=== PATIENT | female | born 1970 | race Asian ===

== ENCOUNTER 2017-07-15 19:52 | Emergency (ER) | payer BC, OTHER ==
[~2017-07-15] VITALS: Ht 162.6 cm; Wt 61.0 kg
[~2017-07-15 19:52] MED LIST: METF500T4 PO
[2017-07-15] MEDS ORDERED: SODIUM CHLORIDE 0.9% 1,000 ML IV ONE ×2 (20:15→22:30)
[2017-07-15] MEDS ORDERED: IBUPROFEN 800 MG TABLET PO ONE (20:15)
[2017-07-15] MEDS ORDERED: ACETAMINOPHEN 500 MG TABLET PO ONE (20:15)
[2017-07-15 20:27] LABS: EOSINOPHILS % (AUTO) 0.1 % (1.0-6.0); HEMATOCRIT 39.5 % (36-46); HEMOGLOBIN 13.4 g/dL (12.0-16.0); LYMPHOCYTES # (AUTO) 0.9 K/uL (1.0-4.8); LYMPHOCYTES % (AUTO) 8.5 % (22.0-44.0); MEAN CORPUSCULAR HEMOGLOBIN 30.2 pg (26.0-34.0); MEAN CORPUSCULAR VOLUME 89 fL (80-100); MONOCYTES % (AUTO) 0.4 % (2.0-9.0); NEUTROPHILS # (AUTO) 9.6 K/uL (1.8-7.7); PLATELET COUNT (AUTO) 249 K/uL (150-450); RED BLOOD CELL COUNT(AUTO) 4.46 MIL/uL (4.00-5.20); RED CELL DISTRIBUTION WIDTH 12.6 % (11.5-14.5); WHITE BLOOD COUNT (AUTO) 10.5 K/uL (4.5-11.0)
[2017-07-15 20:36] LABS: ANION GAP 17 mmol/L (8-16); CARBON DIOXIDE 20 mmol/L (22-29); CHLORIDE 94 mmol/L (98-107); CREATININE 0.62 mg/dL (0.60-1.30); GLOMERULAR FILTR. RATE CALC > 60 mL/min (>60); SODIUM SERUM 131 mmol/L (136-145); UREA NITROGEN, BLOOD 8 mg/dL (7-18)
[2017-07-15 20:42] LABS: ALANINE AMINOTRANSFERASE 70 U/L (12-78); ALBUMIN 3.7 g/dL (3.4-5.0); ASPARTATE AMINOTRANSFERASE 140 U/L (15-37); BILIRUBIN,TOTAL 0.7 mg/dL (0.1-1.0); TOTAL PROTEIN, SERUM 7.7 g/dL (6.4-8.2)
[2017-07-15 20:54] LABS: RBC MORPHOLOGY COMMENT NORMAL RBC MORPH
[2017-07-15 20:54] LABS: APPEARANCE,URINE CLOUDY (CLEAR); GLUCOSE, URINE (UA) >=1000 mg/dL (NEGATIVE); KETONES,URINE 40 mg/dL (NEGATIVE); LEUKOCYTE ESTERASE ,URINE NEGATIVE (NEGATIVE); OCCULT BLOOD,URINE NEGATIVE (NEGATIVE); PROTEIN,URINE SEE CONFIRM (NEGATIVE)
[2017-07-15 20:55] LABS: ADD UA MICROSCOPIC YES
[2017-07-15 20:58] LABS: RBC,URINE 0-2 /HPF (0-2); SQUAMOUS EPITHELIAL CELL,UR Few /LPF (None Seen); SULFOSALICYLIC ACID,URINE 3+ (Negative)
[2017-07-15 21:01] LABS: LACTIC ACID 1.8 mmol/L (0.4-2.0)
[2017-07-15 21:10] LABS: INFLUENZA TYPE B NEGATIVE FOR TYPE B (NEGATIVE)
[2017-07-15 21:23] LABS: GLUCOSE COMMENT 1 Doctor Notified; GLUCOSE,POINT OF CARE 300 MG/DL (70-110)
[2017-07-15] MEDS ORDERED: INSULIN REGULAR, HUMAN 100 UNITS/ML IVP ONE (21:30)
[2017-07-15] MEDS ORDERED: CefTRIAXone 1 GM/DEXTROSE 50 ML IV ONE (21:30)
[2017-07-15 22:16] LABS: GLUCOSE,POINT OF CARE 242 MG/DL (70-110)
[2017-07-16 00:13] LABS: GLUCOSE,POINT OF CARE 328 MG/DL (70-110)
[2017-07-16] MEDS ORDERED: INSULIN REGULAR, HUMAN 100 UNITS/ML IVP ONE (00:15)
[2017-07-16] MEDS ORDERED: SODIUM CHLORIDE 0.9% 500 ML IV ONE (00:45)
[2017-07-16 01:02] LABS: GLUCOSE,POINT OF CARE 268 MG/DL (70-110)
[2017-07-16 01:42] LABS: ANION GAP 15 mmol/L (8-16); CALCIUM, TOTAL 7.7 mg/dL (8.8-10.5); CARBON DIOXIDE 19 mmol/L (22-29); CHLORIDE 103 mmol/L (98-107); CREATININE 0.64 mg/dL (0.60-1.30); GLOMERULAR FILTR. RATE CALC > 60 mL/min (>60); POTASSIUM 3.1 mmol/L (3.5-5.1); SODIUM SERUM 137 mmol/L (136-145); UREA NITROGEN, BLOOD 9 mg/dL (7-18)
[2017-07-16 01:48] LABS: ALANINE AMINOTRANSFERASE 82 U/L (12-78); ALBUMIN 2.6 g/dL (3.4-5.0); ASPARTATE AMINOTRANSFERASE 119 U/L (15-37); BILIRUBIN,TOTAL 0.3 mg/dL (0.1-1.0); TOTAL PROTEIN, SERUM 5.7 g/dL (6.4-8.2)
[2017-07-16] MEDS ORDERED: POTASSIUM CHLORIDE 20 MEQ ER TABLET PO ONE (02:30)
[2017-07-16 02:31] VITALS: BP 112/7
== END 2017-07-16 02:45 | disposition home or self-care (01) ==
LOC: EMS 19:53
DX: N39.0 Urinary tract infection, site not specified (principal); R50.9 Fever, unspecified; E11.65 Type 2 diabetes mellitus with hyperglycemia; E86.0 Dehydration
CPT/HCPCS: 36415; 80053; 81001; 82009; 82962; 83605; 84703; 85025; 87040; 87077; 87086; 87186; 87430; 87804; 96360; 96361; 96365; 96375; 96376; 99285; J0696; J1815 ×2; J7030

== ENCOUNTER 2017-08-01 08:48 | Inpatient (IN) | payer BC, MEDICAID ==
[~2017-08-01] VITALS: Ht 162.6 cm; Wt 47.5 kg
[2017-08-01] MEDS ORDERED: METF500T4 PO (09:02)
[2017-08-01 09:12] LABS: GLUCOSE,POINT OF CARE 476 MG/DL (70-110)
[2017-08-01] MEDS ORDERED: SODIUM CHLORIDE 0.9% 1,000 ML IV ONE ×2 (10:00→13:30)
[2017-08-01 10:06] LABS: HEMATOCRIT 43.7 % (36-46); HEMOGLOBIN 14.4 g/dL (12.0-16.0); MEAN CORPUSCULAR HEMOGLOBIN 29.5 pg (26.0-34.0); MEAN CORPUSCULAR HGB CONC 33.1 G/dL (31.0-37.0); MEAN CORPUSCULAR VOLUME 89 fL (80-100); PLATELET COUNT (AUTO) 176 K/uL (150-450); RED BLOOD CELL COUNT(AUTO) 4.89 MIL/uL (4.00-5.20); RED CELL DISTRIBUTION WIDTH 13.6 % (11.5-14.5); WHITE BLOOD COUNT (AUTO) 14.6 K/uL (4.5-11.0)
[2017-08-01 10:22] LABS: HEMOGLOBIN A1C 11.5 % (4.5-6.2)
[2017-08-01 10:23] LABS: ALANINE AMINOTRANSFERASE 49 U/L (12-78); ALBUMIN 2.7 g/dL (3.4-5.0); ANION GAP 25 mmol/L (8-16); ASPARTATE AMINOTRANSFERASE 13 U/L (15-37); BILIRUBIN,TOTAL 0.7 mg/dL (0.1-1.0); CALCIUM, TOTAL 9.2 mg/dL (8.8-10.5); CHLORIDE 87 mmol/L (98-107); CREATININE 0.84 mg/dL (0.60-1.30); GLOMERULAR FILTR. RATE CALC > 60 mL/min (>60); POTASSIUM 3.1 mmol/L (3.5-5.1); TOTAL PROTEIN, SERUM 8.3 g/dL (6.4-8.2); UREA NITROGEN, BLOOD 12 mg/dL (7-18)
[2017-08-01 10:24] LABS: BAND NEUTROPHILS % (MANUAL) 21 % (1-5); LYMPHOCYTES % (MANUAL) 5 % (22-44); TOTAL CELLS COUNTED 100
[2017-08-01 10:25] LABS: RBC MORPHOLOGY COMMENT NORMAL RBC MORPH
[2017-08-01 10:26] LABS: CARBON DIOXIDE 9 mmol/L (22-29); SODIUM SERUM 121 mmol/L (136-145)
[2017-08-01 10:33] LABS: APPEARANCE,URINE CLEAR (CLEAR); GLUCOSE, URINE (UA) >=1000 mg/dL (NEGATIVE); KETONES,URINE >=80 mg/dL (NEGATIVE); LEUKOCYTE ESTERASE ,URINE NEGATIVE (NEGATIVE); OCCULT BLOOD,URINE SMALL (NEGATIVE); PH,URINE 5.5 (5.0-8.0); PROTEIN,URINE POS 1+ (NEGATIVE)
[2017-08-01 10:40] LABS: ABG A-A DIFF O2 21.4 mmHg (10-20.0); ABG BASE EXCESS -21.5 mmol/L (-2.0-3.0); ABG HCO3 10.6 mmol/L (22.0-26.0); ABG OXYHEMOGLOBIN 96.5 % (94.0-100.0)
[2017-08-01 10:41] LABS: ABG PCO2 13 mmHg (35-45)
[2017-08-01 10:42] LABS: ALLEN TEST, BLOOD GAS Positive
[2017-08-01 11:09] LABS: SQUAMOUS EPITHELIAL CELL,UR Few /LPF (None Seen); WBC,URINE None Seen /HPF (0-5)
[2017-08-01 12:27] LABS: GLUCOSE,POINT OF CARE 309 MG/DL (70-110)
[2017-08-01 13:12] LABS: GLUCOSE,POINT OF CARE 320 MG/DL (70-110)
[2017-08-01] MEDS ORDERED: POTASSIUM CHLORIDE 40 MEQ in SODIUM CHLORIDE 0.45% 1,000 ML IV PRN (13:21)
[2017-08-01] MEDS ORDERED: INSULIN REGULAR, HUMAN 100 UNITS in SODIUM CHLORIDE 0.9% 99 ML IV PRN ×4 (13:21→15:00)
[2017-08-01] MEDS ORDERED: DEXTROSE 5%-0.45% SODIUM CHL 1,000 ML IV PRN (13:21)
[2017-08-01] MEDS ORDERED: SODIUM CHLORIDE 0.45% 1,000 ML IV PRN ×2 (13:21→15:00)
[2017-08-01] MEDS ORDERED: SODIUM CHLORIDE 0.9% 1,000 ML IV SCH ×2 (13:21→15:00)
[2017-08-01] MEDS ORDERED: POTASSIUM CHL 20 MEQ/0.45% NS 1,000 ML IV PRN (13:21)
[2017-08-01] MEDS ORDERED: DEXTROSE 50%-WATER 25 GM/50 ML SYRINGE IVP PRN ×2 (13:30→15:00)
[2017-08-01] MEDS ORDERED: INSULIN REGULAR, HUMAN 100 UNITS/ML IVP ONE ×2 (13:30→15:00)
[2017-08-01] MEDS ORDERED: INSULIN REGULAR, HUMAN 100 UNITS/ML IVP PRN ×2 (13:30→15:00)
[2017-08-01 14:05] LABS: ANION GAP 25 mmol/L (8-16); CALCIUM, TOTAL 8.5 mg/dL (8.8-10.5); CHLORIDE 96 mmol/L (98-107); CREATININE 0.68 mg/dL (0.60-1.30); GLOMERULAR FILTR. RATE CALC > 60 mL/min (>60); POTASSIUM 3.3 mmol/L (3.5-5.1); SODIUM SERUM 129 mmol/L (136-145); UREA NITROGEN, BLOOD 12 mg/dL (7-18)
[2017-08-01 14:10] LABS: CARBON DIOXIDE 8 mmol/L (22-29)
[2017-08-01] MEDS ORDERED: HYDROCODONE/ACETAMINOPHEN 5-325 MG TABLET PO PRN (15:00)
[2017-08-01] MEDS ORDERED: MAGNESIUM HYDROXIDE SUSPENSION 30 ML UDCUP PO PRN (15:00)
[2017-08-01] MEDS ORDERED: ZOLPIDEM TARTRATE 5 MG TABLET PO PRN (15:00)
[2017-08-01] MEDS ORDERED: BISACODYL 10 MG RECTAL RECTAL SUPPOSITORY PR PRN (15:00)
[2017-08-01] MEDS ORDERED: ONDANSETRON HCL 4 MG/2 ML VIAL IVP PRN (15:00)
[2017-08-01] MEDS ORDERED: MORPHINE SULFATE 2 MG/ML SYRINGE IVP PRN (15:00)
[2017-08-01 15:08] LABS: GLUCOSE,POINT OF CARE 229 MG/DL (70-110)
[2017-08-01] MEDS: DEXTROSE 5%-0.45% SODIUM CHL 1,000 ML IV PRN ×2 (15:35→20:36)
[2017-08-01 16:08] LABS: GLUCOSE,POINT OF CARE 228 MG/DL (70-110)
[2017-08-01] MEDS ORDERED: POTASSIUM CHL 40 MEQ/D5-0.45NS 1,000 ML IV ONE (16:30)
[2017-08-01 17:08] LABS: GLUCOSE,POINT OF CARE 157 MG/DL (70-110)
[2017-08-01] MEDS: HEPARIN SODIUM,PORCINE 5,000 UNITS/ML VIAL SQ SCH ×2 (17:51→23:59)
[2017-08-01 18:08] LABS: GLUCOSE,POINT OF CARE 157 MG/DL (70-110)
[2017-08-01 18:42] LABS: EOSINOPHILS % (AUTO) 0 % (1.0-6.0); HEMATOCRIT 37.3 % (36-46); HEMOGLOBIN 12.5 g/dL (12.0-16.0); LYMPHOCYTES # (AUTO) 0.2 K/uL (1.0-4.8); LYMPHOCYTES % (AUTO) 1.4 % (22.0-44.0); MEAN CORPUSCULAR HEMOGLOBIN 29.5 pg (26.0-34.0); MEAN CORPUSCULAR HGB CONC 33.5 G/dL (31.0-37.0); MEAN CORPUSCULAR VOLUME 88 fL (80-100); MONOCYTES # (AUTO) 0.3 K/uL (0.1-1.0); NEUTROPHILS # (AUTO) 15.9 K/uL (1.8-7.7); PLATELET COUNT (AUTO) 201 K/uL (150-450); RED BLOOD CELL COUNT(AUTO) 4.23 MIL/uL (4.00-5.20); RED CELL DISTRIBUTION WIDTH 13.5 % (11.5-14.5); WHITE BLOOD COUNT (AUTO) 16.5 K/uL (4.5-11.0)
[2017-08-01 18:46] LABS: ANION GAP 16 mmol/L (8-16); CALCIUM, TOTAL 8.4 mg/dL (8.8-10.5); CARBON DIOXIDE 13 mmol/L (22-29); CHLORIDE 101 mmol/L (98-107); CREATININE 0.62 mg/dL (0.60-1.30); GLOMERULAR FILTR. RATE CALC > 60 mL/min (>60); SODIUM SERUM 130 mmol/L (136-145); UREA NITROGEN, BLOOD 10 mg/dL (7-18)
[2017-08-01 18:47] LABS: NEUTROPHILS % (AUTO) 96.6 % (40.0-70.0)
[2017-08-01 18:52] LABS: POTASSIUM 2.5 mmol/L (3.5-5.1)
[2017-08-01 19:02] LABS: GLUCOSE,POINT OF CARE 133 MG/DL (70-110)
[2017-08-01] MEDS: POTASSIUM CHL 10 MEQ/WATER 50 ML IV PRN ×5 (19:18→23:25)
[2017-08-01 19:21] LABS: RBC MORPHOLOGY COMMENT NORMAL RBC MORPH
[2017-08-01] MEDS: POTASSIUM CHLORIDE 40 MEQ in SODIUM CHLORIDE 0.45% 1,000 ML IV PRN ×2 (20:39→23:39)
[2017-08-01 21:00] VITALS: BP 138/68
[2017-08-01] MEDS: DOCUSATE SODIUM 100 MG CAPSULE PO SCH (21:16)
[2017-08-01] MEDS ORDERED: PNEUMOCOCCAL VACCINE POLYVALENT 0.5 ML VIAL [PPSV23] IM ONE (22:15)
[2017-08-01 22:59] LABS: ANION GAP 12 mmol/L (8-16); CALCIUM, TOTAL 8.4 mg/dL (8.8-10.5); CARBON DIOXIDE 14 mmol/L (22-29); CHLORIDE 100 mmol/L (98-107); CREATININE 0.45 mg/dL (0.60-1.30); GLOMERULAR FILTR. RATE CALC > 60 mL/min (>60); POTASSIUM 3.5 mmol/L (3.5-5.1); SODIUM SERUM 126 mmol/L (136-145); UREA NITROGEN, BLOOD 9 mg/dL (7-18)
[2017-08-02] VITALS (7 sets, daily range): BP systolic 97–138; BP diastolic 50–80
[2017-08-02 00:14] LABS: GLUCOSE COMMENT 1 Received Meds; GLUCOSE,POINT OF CARE 107 MG/DL (70-110)
[2017-08-02 00:14] LABS: GLUCOSE COMMENT 1 Received Meds; GLUCOSE,POINT OF CARE 116 MG/DL (70-110)
[2017-08-02 00:14] LABS: GLUCOSE,POINT OF CARE 109 MG/DL (70-110)
[2017-08-02 00:14] LABS: GLUCOSE COMMENT 1 Received Meds; GLUCOSE,POINT OF CARE 107 MG/DL (70-110)
[2017-08-02 00:14] LABS: GLUCOSE COMMENT 1 Received Meds; GLUCOSE,POINT OF CARE 102 MG/DL (70-110)
[2017-08-02] MEDS: POTASSIUM CHL 10 MEQ/WATER 50 ML IV PRN ×2 (00:26→01:08)
[2017-08-02 03:54] LABS: BASOPHILS % (AUTO) 0.1 % (0.0-2.0); EOSINOPHILS % (AUTO) 0.2 % (1.0-6.0); HEMOGLOBIN 11.6 g/dL (12.0-16.0); LYMPHOCYTES # (AUTO) 0.9 K/uL (1.0-4.8); LYMPHOCYTES % (AUTO) 6.2 % (22.0-44.0); MEAN CORPUSCULAR HEMOGLOBIN 29.1 pg (26.0-34.0); MEAN CORPUSCULAR HGB CONC 34.1 G/dL (31.0-37.0); MEAN CORPUSCULAR VOLUME 85 fL (80-100); MONOCYTES # (AUTO) 0.9 K/uL (0.1-1.0); MONOCYTES % (AUTO) 6.1 % (2.0-9.0); NEUTROPHILS # (AUTO) 12.6 K/uL (1.8-7.7); PLATELET COUNT (AUTO) 182 K/uL (150-450); RED BLOOD CELL COUNT(AUTO) 3.99 MIL/uL (4.00-5.20); RED CELL DISTRIBUTION WIDTH 13.5 % (11.5-14.5); WHITE BLOOD COUNT (AUTO) 14.4 K/uL (4.5-11.0)
[2017-08-02 03:56] LABS: NEUTROPHILS % (AUTO) 87.4 % (40.0-70.0)
[2017-08-02 04:11] LABS: RBC MORPHOLOGY COMMENT NORMAL RBC MORPH
[2017-08-02 04:13] LABS: ALANINE AMINOTRANSFERASE 39 U/L (12-78); ALBUMIN 1.8 g/dL (3.4-5.0); ANION GAP 11 mmol/L (8-16); ASPARTATE AMINOTRANSFERASE 47 U/L (15-37); BILIRUBIN,TOTAL 0.5 mg/dL (0.1-1.0); CALCIUM, TOTAL 8.1 mg/dL (8.8-10.5); CARBON DIOXIDE 14 mmol/L (22-29); CHLORIDE 100 mmol/L (98-107); CREATININE 0.42 mg/dL (0.60-1.30); GLOMERULAR FILTR. RATE CALC > 60 mL/min (>60); POTASSIUM 3.7 mmol/L (3.5-5.1); SODIUM SERUM 125 mmol/L (136-145); TOTAL PROTEIN, SERUM 5.7 g/dL (6.4-8.2); UREA NITROGEN, BLOOD 7 mg/dL (7-18)
[2017-08-02 04:24] LABS: PHOSPHORUS 0.6 mg/dL (2.5-4.9)
[2017-08-02 04:32] LABS: GLUCOSE COMMENT 1 Received Meds; GLUCOSE,POINT OF CARE 157 MG/DL (70-110)
[2017-08-02 04:32] LABS: GLUCOSE COMMENT 1 Received Meds; GLUCOSE,POINT OF CARE 133 MG/DL (70-110)
[2017-08-02 04:32] LABS: GLUCOSE COMMENT 1 Received Meds; GLUCOSE,POINT OF CARE 136 MG/DL (70-110)
[2017-08-02 04:32] LABS: GLUCOSE COMMENT 1 Received Meds; GLUCOSE,POINT OF CARE 128 MG/DL (70-110)
[2017-08-02] MEDS: DEXTROSE 5%-0.45% SODIUM CHL 1,000 ML IV PRN (04:43)
[2017-08-02] MEDS: POTASSIUM CHLORIDE 40 MEQ in SODIUM CHLORIDE 0.45% 1,000 ML IV PRN (04:46)
[2017-08-02] MEDS ORDERED: SODIUM PHOS,M-BASIC-D-BASIC 30 MMOL in DEXTROSE 5%-WATER 250 ML IV ONE (05:00)
[2017-08-02] MEDS ORDERED: MAGNESIUM SULFATE 2 GM in DEXTROSE 5%-WATER 50 ML IV ONE (05:00)
[2017-08-02 07:46] LABS: ANION GAP 11 mmol/L (8-16); CALCIUM, TOTAL 8.6 mg/dL (8.8-10.5); CARBON DIOXIDE 16 mmol/L (22-29); CHLORIDE 99 mmol/L (98-107); GLOMERULAR FILTR. RATE CALC > 60 mL/min (>60); POTASSIUM 4.2 mmol/L (3.5-5.1); SODIUM SERUM 126 mmol/L (136-145); UREA NITROGEN, BLOOD 7 mg/dL (7-18)
[2017-08-02] MEDS: POTASSIUM CHL 20 MEQ/0.45% NS 1,000 ML IV PRN ×2 (08:26→12:05)
[2017-08-02] MEDS: HEPARIN SODIUM,PORCINE 5,000 UNITS/ML VIAL SQ SCH ×2 (08:54→16:53)
[2017-08-02] MEDS: DOCUSATE SODIUM 100 MG CAPSULE PO SCH ×2 (08:54→20:31)
[2017-08-02] MEDS: PANTOPRAZOLE SODIUM 40 MG DR TABLET PO SCH (08:55)
[2017-08-02 11:27] LABS: ANION GAP 13 mmol/L (8-16); CALCIUM, TOTAL 7.5 mg/dL (8.8-10.5); CARBON DIOXIDE 13 mmol/L (22-29); CHLORIDE 97 mmol/L (98-107); CREATININE 0.47 mg/dL (0.60-1.30); GLOMERULAR FILTR. RATE CALC > 60 mL/min (>60); POTASSIUM 3.2 mmol/L (3.5-5.1); UREA NITROGEN, BLOOD 7 mg/dL (7-18)
[2017-08-02 11:30] LABS: SODIUM SERUM 123 mmol/L (136-145)
[2017-08-02] MEDS ORDERED: POTASSIUM CHL 20 MEQ/0.9% NS 1,000 ML IV SCH (12:15)
[2017-08-02] MEDS ORDERED: POTASSIUM CHL 20 MEQ/0.9% NS 1,000 ML IV PRN (12:30)
[2017-08-02] MEDS: POTASSIUM CHLORIDE 20 MEQ ER TABLET PO PRN ×2 (12:32→20:34)
[2017-08-02] MEDS: ACETAMINOPHEN 325 MG TABLET PO PRN ×2 (14:50→23:15)
[2017-08-02 15:58] LABS: ANION GAP 12 mmol/L (8-16); CALCIUM, TOTAL 7.4 mg/dL (8.8-10.5); CARBON DIOXIDE 14 mmol/L (22-29); CHLORIDE 97 mmol/L (98-107); CREATININE 0.49 mg/dL (0.60-1.30); GLOMERULAR FILTR. RATE CALC > 60 mL/min (>60); POTASSIUM 3.5 mmol/L (3.5-5.1); UREA NITROGEN, BLOOD 6 mg/dL (7-18)
[2017-08-02 16:08] LABS: SODIUM SERUM 123 mmol/L (136-145)
[2017-08-02] MEDS ORDERED: INSULIN REGULAR, HUMAN 100 UNITS/ML SQ ONE (16:30)
[2017-08-02] MEDS ORDERED: DEXTROSE 50%-WATER 25 GM/50 ML SYRINGE IVP PRN (16:30)
[2017-08-02] MEDS: INSULIN DETEMIR 100 UNITS/ML SQ SCH (17:33)
[2017-08-02] MEDS: INSULIN REGULAR, HUMAN 100 UNITS/ML SQ PRN ×2 (17:35→19:47)
[2017-08-02 19:56] LABS: ANION GAP 9 mmol/L (8-16); CALCIUM, TOTAL 7.8 mg/dL (8.8-10.5); CARBON DIOXIDE 16 mmol/L (22-29); CHLORIDE 101 mmol/L (98-107); CREATININE 0.53 mg/dL (0.60-1.30); GLOMERULAR FILTR. RATE CALC > 60 mL/min (>60); POTASSIUM 3.3 mmol/L (3.5-5.1); SODIUM SERUM 126 mmol/L (136-145); UREA NITROGEN, BLOOD 7 mg/dL (7-18)
[2017-08-02] MEDS: POTASSIUM CHL 20 MEQ/0.9% NS 1,000 ML IV SCH (20:30)
[2017-08-02 20:39] LABS: GLUCOSE,POINT OF CARE 118 MG/DL (70-110)
[2017-08-02 20:39] LABS: GLUCOSE COMMENT 1 Received Meds; GLUCOSE,POINT OF CARE 115 MG/DL (70-110)
[2017-08-02 20:39] LABS: GLUCOSE,POINT OF CARE 208 MG/DL (70-110)
[2017-08-02 20:40] LABS: GLUCOSE,POINT OF CARE 204 MG/DL (70-110)
[2017-08-02 20:40] LABS: GLUCOSE COMMENT 1 Received Meds; GLUCOSE,POINT OF CARE 219 MG/DL (70-110)
[2017-08-02 20:40] LABS: GLUCOSE,POINT OF CARE 217 MG/DL (70-110)
[2017-08-02 20:40] LABS: GLUCOSE,POINT OF CARE 225 MG/DL (70-110)
[2017-08-02 20:40] LABS: GLUCOSE,POINT OF CARE 216 MG/DL (70-110)
[2017-08-02 20:40] LABS: GLUCOSE,POINT OF CARE 197 MG/DL (70-110)
[2017-08-02 20:40] LABS: GLUCOSE,POINT OF CARE 230 MG/DL (70-110)
[2017-08-03] MEDS: HEPARIN SODIUM,PORCINE 5,000 UNITS/ML VIAL SQ SCH ×4 (00:13→23:49)
[2017-08-03] MEDS: POTASSIUM CHLORIDE 20 MEQ ER TABLET PO PRN (03:58)
[2017-08-03 04:39] VITALS: BP 98/48
[2017-08-03 08:26] VITALS: BP 114/57
[2017-08-03] MEDS: PANTOPRAZOLE SODIUM 40 MG DR TABLET PO SCH (08:31)
[2017-08-03] MEDS: DOCUSATE SODIUM 100 MG CAPSULE PO SCH ×2 (08:31→20:16)
[2017-08-03] MEDS: ACETAMINOPHEN 325 MG TABLET PO PRN ×2 (09:33→20:17)
[2017-08-03 09:47] LABS: CALCIUM, TOTAL 8.1 mg/dL (8.8-10.5); CARBON DIOXIDE 17 mmol/L (22-29); CREATININE 0.51 mg/dL (0.60-1.30); GLOMERULAR FILTR. RATE CALC > 60 mL/min (>60); UREA NITROGEN, BLOOD 6 mg/dL (7-18)
[2017-08-03 11:09] LABS: ANION GAP 13 mmol/L (8-16); CHLORIDE 103 mmol/L (98-107); POTASSIUM 4.3 mmol/L (3.5-5.1); SODIUM SERUM 133 mmol/L (136-145)
[2017-08-03] MEDS: POTASSIUM CHL 20 MEQ/0.9% NS 1,000 ML IV SCH (11:13)
[2017-08-03 11:36] LABS: GLUCOSE COMMENT 1 Received Meds; GLUCOSE,POINT OF CARE 120 MG/DL (70-110)
[2017-08-03 11:47] LABS: GLUCOSE,POINT OF CARE 105 MG/DL (70-110)
[2017-08-03 11:48] VITALS: BP 96/43
[2017-08-03 11:48] LABS: GLUCOSE,POINT OF CARE 270 MG/DL (70-110)
[2017-08-03] MEDS: INSULIN REGULAR, HUMAN 100 UNITS/ML SQ PRN ×3 (11:54→22:07)
[2017-08-03 12:50] LABS: GLUCOSE,POINT OF CARE 300 MG/DL (70-110)
[2017-08-03] MEDS ORDERED: INSULIN DETEMIR 100 UNITS/ML SQ ONE (15:30)
[2017-08-03 16:13] LABS: ANION GAP 10 mmol/L (8-16); CALCIUM, TOTAL 8.2 mg/dL (8.8-10.5); CARBON DIOXIDE 19 mmol/L (22-29); CHLORIDE 98 mmol/L (98-107); CREATININE 0.53 mg/dL (0.60-1.30); GLOMERULAR FILTR. RATE CALC > 60 mL/min (>60); POTASSIUM 4.1 mmol/L (3.5-5.1); SODIUM SERUM 127 mmol/L (136-145); UREA NITROGEN, BLOOD 8 mg/dL (7-18)
[2017-08-03 16:26] VITALS: BP 101/62
[2017-08-03] MEDS: CefTRIAXone 1 GM/DEXTROSE 50 ML IV SCH (16:44)
[2017-08-03] MEDS: INSULIN DETEMIR 100 UNITS/ML SQ SCH (18:22)
[2017-08-03 19:43] VITALS: BP 119/67
[2017-08-03 23:39] VITALS: BP 111/61
[2017-08-04 00:36] LABS: APPEARANCE,URINE CLEAR (CLEAR); GLUCOSE, URINE (UA) >=1000 mg/dL (NEGATIVE); KETONES,URINE 15 mg/dL (NEGATIVE); LEUKOCYTE ESTERASE ,URINE NEGATIVE (NEGATIVE); OCCULT BLOOD,URINE MODERATE (NEGATIVE); PROTEIN,URINE TRACE (NEGATIVE)
[2017-08-04 00:38] LABS: ADD UA MICROSCOPIC YES
[2017-08-04 01:16] LABS: SQUAMOUS EPITHELIAL CELL,UR Rare /LPF (None Seen)
[2017-08-04] MEDS: POTASSIUM CHL 20 MEQ/0.9% NS 1,000 ML IV SCH ×2 (01:34→15:38)
[2017-08-04 04:38] VITALS: BP 103/58
[2017-08-04 04:38] LABS: GLUCOSE,POINT OF CARE 144 MG/DL (70-110)
[2017-08-04 07:29] VITALS: BP 112/57
[2017-08-04 07:29] LABS: BASOPHILS # (AUTO) 0.02 K/uL (0.00-0.20); BASOPHILS % (AUTO) 0.1 % (0.0-2.0); EOSINOPHILS # (AUTO) 0.02 K/uL (0.00-0.70); EOSINOPHILS % (AUTO) 0.09 % (1.0-6.0); HEMOGLOBIN 11.9 g/dL (12.0-16.0); LYMPHOCYTES # (AUTO) 0.9 K/uL (1.0-4.8); LYMPHOCYTES % (AUTO) 3.9 % (22.0-44.0); MEAN CORPUSCULAR VOLUME 85 fL (80-100); MONOCYTES # (AUTO) 1.7 K/uL (0.1-1.0); MONOCYTES % (AUTO) 7.6 % (2.0-9.0); NEUTROPHILS # (AUTO) 19.3 K/uL (1.8-7.7); NEUTROPHILS % (AUTO) 88.3 % (40.0-70.0); PLATELET COUNT (AUTO) 167 K/uL (150-450); RBC MORPHOLOGY COMMENT NORMAL RBC MORPH; RED BLOOD CELL COUNT(AUTO) 4.11 MIL/uL (4.00-5.20); RED CELL DISTRIBUTION WIDTH 13.9 % (11.5-14.5); WHITE BLOOD COUNT (AUTO) 21.9 K/uL (4.5-11.0)
[2017-08-04] MEDS: DOCUSATE SODIUM 100 MG CAPSULE PO SCH ×2 (08:35→20:44)
[2017-08-04] MEDS: PANTOPRAZOLE SODIUM 40 MG DR TABLET PO SCH (08:35)
[2017-08-04] MEDS: HEPARIN SODIUM,PORCINE 5,000 UNITS/ML VIAL SQ SCH ×3 (08:35→23:59)
[2017-08-04 11:12] VITALS: BP 112/59
[2017-08-04] MEDS: INSULIN REGULAR, HUMAN 100 UNITS/ML SQ PRN ×3 (11:48→20:50)
[2017-08-04 15:12] LABS: GLUCOSE COMMENT 1 Received Meds; GLUCOSE,POINT OF CARE 179 MG/DL (70-110)
[2017-08-04] MEDS: CefTRIAXone 1 GM/DEXTROSE 50 ML IV SCH (15:38)
[2017-08-04 16:01] VITALS: BP 109/53
[2017-08-04] MEDS: INSULIN DETEMIR 100 UNITS/ML SQ SCH (17:58)
[2017-08-04 18:19] LABS: GLUCOSE,POINT OF CARE 277 MG/DL (70-110)
[2017-08-04 18:19] LABS: GLUCOSE COMMENT 1 Juice/Food/D50 Given; GLUCOSE,POINT OF CARE 77 MG/DL (70-110)
[2017-08-04 18:19] LABS: GLUCOSE,POINT OF CARE 66 MG/DL (70-110)
[2017-08-04 18:19] LABS: GLUCOSE,POINT OF CARE 256 MG/DL (70-110)
[2017-08-04 19:59] VITALS: BP 134/69
[2017-08-04 22:03] LABS: GLUCOSE,POINT OF CARE 246 MG/DL (70-110)
[2017-08-04 22:03] LABS: GLUCOSE COMMENT 1 Received Meds; GLUCOSE,POINT OF CARE 288 MG/DL (70-110)
[2017-08-04 23:34] VITALS: BP 117/65
[2017-08-05] MEDS: INSULIN REGULAR, HUMAN 100 UNITS/ML SQ PRN ×5 (01:18→20:43)
[2017-08-05 05:15] VITALS: BP 110/61
[2017-08-05] MEDS: POTASSIUM CHL 20 MEQ/0.9% NS 1,000 ML IV SCH ×2 (05:17→19:59)
[2017-08-05 06:28] LABS: GLUCOSE,POINT OF CARE 161 MG/DL (70-110)
[2017-08-05 06:28] LABS: GLUCOSE,POINT OF CARE 153 MG/DL (70-110)
[2017-08-05] MEDS: PANTOPRAZOLE SODIUM 40 MG DR TABLET PO SCH (08:02)
[2017-08-05] MEDS: HEPARIN SODIUM,PORCINE 5,000 UNITS/ML VIAL SQ SCH ×3 (08:03→23:56)
[2017-08-05] MEDS: DOCUSATE SODIUM 100 MG CAPSULE PO SCH ×2 (08:03→20:43)
[2017-08-05 08:06] VITALS: BP 112/64
[2017-08-05 11:20] VITALS: BP 124/70
[2017-08-05 11:37] LABS: GLUCOSE,POINT OF CARE 237 MG/DL (70-110)
[2017-08-05] MEDS: CefTRIAXone 1 GM/DEXTROSE 50 ML IV SCH (15:24)
[2017-08-05 15:30] VITALS: BP 120/68
[2017-08-05 15:52] LABS: GLUCOSE,POINT OF CARE 314 MG/DL (70-110)
[2017-08-05 16:04] LABS: ANION GAP 7 mmol/L (8-16); CALCIUM, TOTAL 8.1 mg/dL (8.8-10.5); CARBON DIOXIDE 26 mmol/L (22-29); CHLORIDE 98 mmol/L (98-107); CREATININE 0.44 mg/dL (0.60-1.30); GLOMERULAR FILTR. RATE CALC > 60 mL/min (>60); POTASSIUM 4.6 mmol/L (3.5-5.1); SODIUM SERUM 131 mmol/L (136-145); UREA NITROGEN, BLOOD 7 mg/dL (7-18)
[2017-08-05 16:12] LABS: ALANINE AMINOTRANSFERASE 128 U/L (12-78); ALBUMIN 1.8 g/dL (3.4-5.0); ASPARTATE AMINOTRANSFERASE 124 U/L (15-37); BILIRUBIN,TOTAL 0.8 mg/dL (0.1-1.0); TOTAL PROTEIN, SERUM 6.6 g/dL (6.4-8.2)
[2017-08-05 16:16] LABS: EOSINOPHILS % (AUTO) 0.3 % (1.0-6.0); HEMATOCRIT 34.2 % (36-46); HEMOGLOBIN 11.9 g/dL (12.0-16.0); LYMPHOCYTES # (AUTO) 1.2 K/uL (1.0-4.8); LYMPHOCYTES % (AUTO) 6.3 % (22.0-44.0); MEAN CORPUSCULAR HEMOGLOBIN 29.7 pg (26.0-34.0); MEAN CORPUSCULAR HGB CONC 34.8 G/dL (31.0-37.0); MEAN CORPUSCULAR VOLUME 85 fL (80-100); MONOCYTES # (AUTO) 0.6 K/uL (0.1-1.0); MONOCYTES % (AUTO) 3.3 % (2.0-9.0); NEUTROPHILS # (AUTO) 16.7 K/uL (1.8-7.7); PLATELET COUNT (AUTO) 263 K/uL (150-450); RED BLOOD CELL COUNT(AUTO) 4.02 MIL/uL (4.00-5.20); WHITE BLOOD COUNT (AUTO) 18.5 K/uL (4.5-11.0)
[2017-08-05 16:19] LABS: NEUTROPHILS % (AUTO) 90.1 % (40.0-70.0)
[2017-08-05] MEDS: INSULIN DETEMIR 100 UNITS/ML SQ SCH (18:03)
[2017-08-05 20:14] VITALS: BP 121/67
[2017-08-05 22:33] LABS: GLUCOSE COMMENT 1 Received Meds; GLUCOSE,POINT OF CARE 226 MG/DL (70-110)
[2017-08-06 00:18] VITALS: BP 113/70
[2017-08-06 02:47] LABS: GLUCOSE,POINT OF CARE 186 MG/DL (70-110)
[2017-08-06 05:10] VITALS: BP 117/67
[2017-08-06 05:48] LABS: GLUCOSE,POINT OF CARE 190 MG/DL (70-110)
[2017-08-06 06:22] LABS: BASOPHILS # (AUTO) 0.01 K/uL (0.00-0.20); BASOPHILS % (AUTO) 0.1 % (0.0-2.0); EOSINOPHILS # (AUTO) 0.03 K/uL (0.00-0.70); EOSINOPHILS % (AUTO) 0.17 % (1.0-6.0); HEMATOCRIT 29.6 % (36-46); HEMOGLOBIN 10.7 g/dL (12.0-16.0); LYMPHOCYTES # (AUTO) 1.5 K/uL (1.0-4.8); LYMPHOCYTES % (AUTO) 9.3 % (22.0-44.0); MEAN CORPUSCULAR HEMOGLOBIN 29.9 pg (26.0-34.0); MEAN CORPUSCULAR HGB CONC 36.1 G/dL (31.0-37.0); MEAN CORPUSCULAR VOLUME 83 fL (80-100); MONOCYTES # (AUTO) 0.5 K/uL (0.1-1.0); MONOCYTES % (AUTO) 3.1 % (2.0-9.0); NEUTROPHILS # (AUTO) 14.1 K/uL (1.8-7.7); PLATELET COUNT (AUTO) 274 K/uL (150-450); RED BLOOD CELL COUNT(AUTO) 3.57 MIL/uL (4.00-5.20); RED CELL DISTRIBUTION WIDTH 14.2 % (11.5-14.5); WHITE BLOOD COUNT (AUTO) 16.2 K/uL (4.5-11.0)
[2017-08-06 06:33] LABS: ALANINE AMINOTRANSFERASE 125 U/L (12-78); ALBUMIN 1.6 g/dL (3.4-5.0); ANION GAP 6 mmol/L (8-16); ASPARTATE AMINOTRANSFERASE 126 U/L (15-37); BILIRUBIN,TOTAL 0.6 mg/dL (0.1-1.0); CARBON DIOXIDE 27 mmol/L (22-29); CHLORIDE 97 mmol/L (98-107); CREATININE 0.47 mg/dL (0.60-1.30); GLOMERULAR FILTR. RATE CALC > 60 mL/min (>60); POTASSIUM 4.2 mmol/L (3.5-5.1); SODIUM SERUM 130 mmol/L (136-145); TOTAL PROTEIN, SERUM 5.7 g/dL (6.4-8.2); UREA NITROGEN, BLOOD 9 mg/dL (7-18)
[2017-08-06 06:55] LABS: NEUTROPHILS % (AUTO) 87.3 % (40.0-70.0)
[2017-08-06 07:20] VITALS: BP 115/67
[2017-08-06] MEDS: DOCUSATE SODIUM 100 MG CAPSULE PO SCH ×2 (07:43→20:01)
[2017-08-06] MEDS: PANTOPRAZOLE SODIUM 40 MG DR TABLET PO SCH (07:44)
[2017-08-06] MEDS: HEPARIN SODIUM,PORCINE 5,000 UNITS/ML VIAL SQ SCH ×3 (07:44→23:45)
[2017-08-06] MEDS: INSULIN REGULAR, HUMAN 100 UNITS/ML SQ PRN ×5 (09:02→20:37)
[2017-08-06 09:12] LABS: GLUCOSE,POINT OF CARE 293 MG/DL (70-110)
[2017-08-06 11:20] VITALS: BP 130/60
[2017-08-06] MEDS ORDERED: LACTULOSE 20 GM/30 ML SOLUTION UDCUP PO PRN (11:30)
[2017-08-06 12:17] LABS: GLUCOSE,POINT OF CARE 238 MG/DL (70-110)
[2017-08-06 15:10] VITALS: BP 122/62
[2017-08-06] MEDS: CefTRIAXone 1 GM/DEXTROSE 50 ML IV SCH (15:24)
[2017-08-06 16:22] LABS: GLUCOSE,POINT OF CARE 288 MG/DL (70-110)
[2017-08-06] MEDS: INSULIN DETEMIR 100 UNITS/ML SQ SCH (18:36)
[2017-08-06 19:31] VITALS: BP 116/64
[2017-08-06] MEDS: POTASSIUM CHL 20 MEQ/0.9% NS 1,000 ML IV SCH (19:35)
[2017-08-07] VITALS (7 sets, daily range): BP systolic 93–125; BP diastolic 47–73
[2017-08-07 04:13] LABS: GLUCOSE,POINT OF CARE 225 MG/DL (70-110)
[2017-08-07 04:13] LABS: GLUCOSE,POINT OF CARE 248 MG/DL (70-110)
[2017-08-07 04:13] LABS: GLUCOSE COMMENT 1 Received Meds; GLUCOSE,POINT OF CARE 288 MG/DL (70-110)
[2017-08-07 05:58] LABS: BASOPHILS % (AUTO) 0.1 % (0.0-2.0); EOSINOPHILS % (AUTO) 0.4 % (1.0-6.0); HEMATOCRIT 31.2 % (36-46); HEMOGLOBIN 10.8 g/dL (12.0-16.0); LYMPHOCYTES # (AUTO) 1.6 K/uL (1.0-4.8); LYMPHOCYTES % (AUTO) 10.4 % (22.0-44.0); MEAN CORPUSCULAR HEMOGLOBIN 29.7 pg (26.0-34.0); MEAN CORPUSCULAR HGB CONC 34.6 G/dL (31.0-37.0); MEAN CORPUSCULAR VOLUME 86 fL (80-100); MONOCYTES # (AUTO) 0.8 K/uL (0.1-1.0); MONOCYTES % (AUTO) 5.3 % (2.0-9.0); NEUTROPHILS # (AUTO) 12.7 K/uL (1.8-7.7); NEUTROPHILS % (AUTO) 83.8 % (40.0-70.0); PLATELET COUNT (AUTO) 347 K/uL (150-450); RED BLOOD CELL COUNT(AUTO) 3.64 MIL/uL (4.00-5.20); RED CELL DISTRIBUTION WIDTH 14.4 % (11.5-14.5); WHITE BLOOD COUNT (AUTO) 15.1 K/uL (4.5-11.0)
[2017-08-07 06:22] LABS: ALANINE AMINOTRANSFERASE 113 U/L (12-78); ALBUMIN 1.9 g/dL (3.4-5.0); ANION GAP 7 mmol/L (8-16); ASPARTATE AMINOTRANSFERASE 44 U/L (15-37); BILIRUBIN,TOTAL 0.5 mg/dL (0.1-1.0); CALCIUM, TOTAL 8.3 mg/dL (8.8-10.5); CARBON DIOXIDE 29 mmol/L (22-29); CHLORIDE 99 mmol/L (98-107); CREATININE 0.47 mg/dL (0.60-1.30); GLOMERULAR FILTR. RATE CALC > 60 mL/min (>60); SODIUM SERUM 135 mmol/L (136-145); TOTAL PROTEIN, SERUM 6.8 g/dL (6.4-8.2); UREA NITROGEN, BLOOD 9 mg/dL (7-18)
[2017-08-07] MEDS: HEPARIN SODIUM,PORCINE 5,000 UNITS/ML VIAL SQ SCH ×2 (09:19→16:00)
[2017-08-07] MEDS: PANTOPRAZOLE SODIUM 40 MG DR TABLET PO SCH (09:19)
[2017-08-07] MEDS: DOCUSATE SODIUM 100 MG CAPSULE PO SCH ×2 (09:19→21:18)
[2017-08-07] MEDS: INSULIN REGULAR, HUMAN 100 UNITS/ML SQ PRN ×3 (09:29→21:18)
[2017-08-07 09:33] LABS: GLUCOSE COMMENT 1 Received Meds; GLUCOSE,POINT OF CARE 280 MG/DL (70-110)
[2017-08-07] MEDS ORDERED: GADOBUTROL 1 MMOL/ML 10 ML VIAL IVP ONE (11:11)
[2017-08-07 12:48] LABS: GLUCOSE COMMENT 1 Received Meds; GLUCOSE,POINT OF CARE 329 MG/DL (70-110)
[2017-08-07] MEDS: CefTRIAXone 1 GM/DEXTROSE 50 ML IV SCH (14:47)
[2017-08-07 16:37] LABS: GLUCOSE COMMENT 1 Received Meds; GLUCOSE,POINT OF CARE 199 MG/DL (70-110)
[2017-08-07] MEDS: INSULIN DETEMIR 100 UNITS/ML SQ SCH (18:14)
[2017-08-07] MEDS ORDERED: SODIUM CHLORIDE 0.9% 1,000 ML IV ONE (20:33)
[2017-08-07 21:17] LABS: GLUCOSE,POINT OF CARE 382 MG/DL (70-110)
[2017-08-08] MEDS: INSULIN REGULAR, HUMAN 100 UNITS/ML SQ PRN ×6 (00:12→21:08)
[2017-08-08] MEDS: HEPARIN SODIUM,PORCINE 5,000 UNITS/ML VIAL SQ SCH ×3 (00:12→16:04)
[2017-08-08 00:23] LABS: GLUCOSE COMMENT 1 Received Meds; GLUCOSE,POINT OF CARE 262 MG/DL (70-110)
[2017-08-08 04:19] VITALS: BP 110/60
[2017-08-08 04:47] LABS: GLUCOSE,POINT OF CARE 130 MG/DL (70-110)
[2017-08-08 06:36] LABS: EOSINOPHILS % (AUTO) 0.4 % (1.0-6.0); HEMATOCRIT 30.6 % (36-46); HEMOGLOBIN 10.8 g/dL (12.0-16.0); LYMPHOCYTES # (AUTO) 1.3 K/uL (1.0-4.8); LYMPHOCYTES % (AUTO) 8.6 % (22.0-44.0); MEAN CORPUSCULAR HEMOGLOBIN 30.1 pg (26.0-34.0); MEAN CORPUSCULAR HGB CONC 35.2 G/dL (31.0-37.0); MEAN CORPUSCULAR VOLUME 86 fL (80-100); MONOCYTES # (AUTO) 0.2 K/uL (0.1-1.0); MONOCYTES % (AUTO) 1.3 % (2.0-9.0); NEUTROPHILS # (AUTO) 13.8 K/uL (1.8-7.7); PLATELET COUNT (AUTO) 330 K/uL (150-450); RED BLOOD CELL COUNT(AUTO) 3.57 MIL/uL (4.00-5.20); RED CELL DISTRIBUTION WIDTH 14.5 % (11.5-14.5); WHITE BLOOD COUNT (AUTO) 15.4 K/uL (4.5-11.0)
[2017-08-08 06:55] LABS: NEUTROPHILS % (AUTO) 89.7 % (40.0-70.0)
[2017-08-08 07:32] LABS: ANION GAP 6 mmol/L (8-16); CALCIUM, TOTAL 8.3 mg/dL (8.8-10.5); CARBON DIOXIDE 26 mmol/L (22-29); CHLORIDE 98 mmol/L (98-107); CREATININE 0.56 mg/dL (0.60-1.30); GLOMERULAR FILTR. RATE CALC > 60 mL/min (>60); POTASSIUM 4.5 mmol/L (3.5-5.1); SODIUM SERUM 130 mmol/L (136-145); UREA NITROGEN, BLOOD 12 mg/dL (7-18)
[2017-08-08 07:37] LABS: ALANINE AMINOTRANSFERASE 77 U/L (12-78); ASPARTATE AMINOTRANSFERASE 26 U/L (15-37); BILIRUBIN,TOTAL 0.4 mg/dL (0.1-1.0); TOTAL PROTEIN, SERUM 6.7 g/dL (6.4-8.2)
[2017-08-08 07:57] VITALS: BP 107/65
[2017-08-08] MEDS: DOCUSATE SODIUM 100 MG CAPSULE PO SCH ×2 (08:06→20:24)
[2017-08-08] MEDS: PANTOPRAZOLE SODIUM 40 MG DR TABLET PO SCH (08:06)
[2017-08-08 08:10] LABS: HEPATITIS Bs ANTIGEN SCREEN P Negative (Negative); HEPATITIS C AB SCREEN 0.2 s/co ratio (0.0-0.9)
[2017-08-08 09:17] LABS: GLUCOSE COMMENT 1 Received Meds; GLUCOSE,POINT OF CARE 319 MG/DL (70-110)
[2017-08-08] MEDS: POTASSIUM CHL 20 MEQ/0.9% NS 1,000 ML IV SCH (10:44)
[2017-08-08 11:56] VITALS: BP 128/87
[2017-08-08 13:27] LABS: GLUCOSE COMMENT 1 Received Meds; GLUCOSE,POINT OF CARE 351 MG/DL (70-110)
[2017-08-08] MEDS ORDERED: INSU3INS3 SQ (14:49)
[2017-08-08] MEDS ORDERED: CEFU250T58 PO (14:49)
[2017-08-08 15:27] VITALS: BP 127/73
[2017-08-08] MEDS: CefTRIAXone 1 GM/DEXTROSE 50 ML IV SCH (16:04)
[2017-08-08 16:17] LABS: GLUCOSE COMMENT 1 Received Meds; GLUCOSE,POINT OF CARE 219 MG/DL (70-110)
[2017-08-08] MEDS: INSULIN DETEMIR 100 UNITS/ML SQ SCH (18:13)
[2017-08-08] MEDS ORDERED: IOVERSOL 320 MG/ML 100 ML VIAL ONE (19:08)
[2017-08-08] MEDS ORDERED: BARIUM SULFATE 0.1% SUSPENSION 450 ML BOTTLE ONE (19:19)
[2017-08-08 19:29] VITALS: BP 119/77
[2017-08-08] MEDS: ACETAMINOPHEN 325 MG TABLET PO PRN (20:25)
[2017-08-08 23:01] VITALS: BP 118/64
[2017-08-09] MEDS: HEPARIN SODIUM,PORCINE 5,000 UNITS/ML VIAL SQ SCH ×4 (00:04→23:14)
[2017-08-09 03:13] LABS: GLUCOSE,POINT OF CARE 281 MG/DL (70-110)
[2017-08-09 03:13] LABS: GLUCOSE,POINT OF CARE 160 MG/DL (70-110)
[2017-08-09] MEDS: POTASSIUM CHL 20 MEQ/0.9% NS 1,000 ML IV SCH (03:43)
[2017-08-09 04:48] VITALS: BP 100/60
[2017-08-09 06:06] LABS: BASOPHILS % (AUTO) 0.9 % (0.0-2.0); EOSINOPHILS % (AUTO) 0.4 % (1.0-6.0); HEMATOCRIT 30.9 % (36-46); HEMOGLOBIN 10.5 g/dL (12.0-16.0); LYMPHOCYTES # (AUTO) 1.1 K/uL (1.0-4.8); LYMPHOCYTES % (AUTO) 7.3 % (22.0-44.0); MEAN CORPUSCULAR HEMOGLOBIN 29.6 pg (26.0-34.0); MEAN CORPUSCULAR HGB CONC 33.9 G/dL (31.0-37.0); MEAN CORPUSCULAR VOLUME 87 fL (80-100); MONOCYTES # (AUTO) 0.5 K/uL (0.1-1.0); MONOCYTES % (AUTO) 3.5 % (2.0-9.0); NEUTROPHILS # (AUTO) 13.1 K/uL (1.8-7.7); PLATELET COUNT (AUTO) 406 K/uL (150-450); RED BLOOD CELL COUNT(AUTO) 3.54 MIL/uL (4.00-5.20); RED CELL DISTRIBUTION WIDTH 14.2 % (11.5-14.5); WHITE BLOOD COUNT (AUTO) 14.9 K/uL (4.5-11.0)
[2017-08-09 06:20] LABS: ALANINE AMINOTRANSFERASE 60 U/L (12-78); ALBUMIN 2.1 g/dL (3.4-5.0); ANION GAP 7 mmol/L (8-16); ASPARTATE AMINOTRANSFERASE 15 U/L (15-37); BILIRUBIN,TOTAL 0.4 mg/dL (0.1-1.0); CALCIUM, TOTAL 8.6 mg/dL (8.8-10.5); CARBON DIOXIDE 29 mmol/L (22-29); CHLORIDE 99 mmol/L (98-107); GLOMERULAR FILTR. RATE CALC > 60 mL/min (>60); SODIUM SERUM 135 mmol/L (136-145); TOTAL PROTEIN, SERUM 6.8 g/dL (6.4-8.2); UREA NITROGEN, BLOOD 11 mg/dL (7-18)
[2017-08-09 06:23] LABS: GLUCOSE,POINT OF CARE 180 MG/DL (70-110)
[2017-08-09 06:54] LABS: NEUTROPHILS % (AUTO) 87.9 % (40.0-70.0)
[2017-08-09 07:30] VITALS: BP 114/59
[2017-08-09] MEDS: DOCUSATE SODIUM 100 MG CAPSULE PO SCH ×2 (08:09→20:38)
[2017-08-09] MEDS: ACETAMINOPHEN 325 MG TABLET PO PRN (08:09)
[2017-08-09] MEDS: PANTOPRAZOLE SODIUM 40 MG DR TABLET PO SCH (08:09)
[2017-08-09] MEDS: INSULIN REGULAR, HUMAN 100 UNITS/ML SQ PRN ×5 (08:52→23:14)
[2017-08-09 09:03] LABS: GLUCOSE,POINT OF CARE 341 MG/DL (70-110)
[2017-08-09 12:01] VITALS: BP 111/60
[2017-08-09 15:57] VITALS: BP 114/57
[2017-08-09] MEDS: CefTRIAXone 1 GM/DEXTROSE 50 ML IV SCH (16:10)
[2017-08-09 16:28] LABS: GLUCOSE,POINT OF CARE 299 MG/DL (70-110)
[2017-08-09 17:22] LABS: GLUCOSE,POINT OF CARE 303 MG/DL (70-110)
[2017-08-09] MEDS: INSULIN DETEMIR 100 UNITS/ML SQ SCH (18:35)
[2017-08-09 19:39] VITALS: BP 104/65
[2017-08-09 21:27] LABS: GLUCOSE COMMENT 1 Received Meds; GLUCOSE,POINT OF CARE 287 MG/DL (70-110)
[2017-08-09 21:27] LABS: GLUCOSE COMMENT 1 Received Meds; GLUCOSE,POINT OF CARE 223 MG/DL (70-110)
[2017-08-09 23:13] VITALS: BP 111/63
[2017-08-09 23:37] LABS: GLUCOSE COMMENT 1 Received Meds; GLUCOSE,POINT OF CARE 166 MG/DL (70-110)
[2017-08-10 04:59] VITALS: BP 105/55
[2017-08-10] MEDS: POTASSIUM CHL 20 MEQ/0.9% NS 1,000 ML IV SCH (05:09)
[2017-08-10] MEDS: INSULIN REGULAR, HUMAN 100 UNITS/ML SQ PRN ×2 (05:10→11:45)
[2017-08-10 06:38] LABS: BASOPHILS % (AUTO) 1.3 % (0.0-2.0); EOSINOPHILS % (AUTO) 0.9 % (1.0-6.0); HEMATOCRIT 32.1 % (36-46); HEMOGLOBIN 10.8 g/dL (12.0-16.0); LYMPHOCYTES # (AUTO) 1.3 K/uL (1.0-4.8); LYMPHOCYTES % (AUTO) 14.1 % (22.0-44.0); MEAN CORPUSCULAR HEMOGLOBIN 29.7 pg (26.0-34.0); MEAN CORPUSCULAR HGB CONC 33.6 G/dL (31.0-37.0); MEAN CORPUSCULAR VOLUME 89 fL (80-100); MONOCYTES # (AUTO) 0.6 K/uL (0.1-1.0); MONOCYTES % (AUTO) 7.1 % (2.0-9.0); NEUTROPHILS # (AUTO) 6.9 K/uL (1.8-7.7); NEUTROPHILS % (AUTO) 76.6 % (40.0-70.0); PLATELET COUNT (AUTO) 441 K/uL (150-450); RED BLOOD CELL COUNT(AUTO) 3.62 MIL/uL (4.00-5.20); RED CELL DISTRIBUTION WIDTH 14.5 % (11.5-14.5)
[2017-08-10 06:57] LABS: GLUCOSE COMMENT 1 Received Meds; GLUCOSE,POINT OF CARE 163 MG/DL (70-110)
[2017-08-10 07:06] LABS: ALANINE AMINOTRANSFERASE 47 U/L (12-78); ALBUMIN 2.2 g/dL (3.4-5.0); ANION GAP 7 mmol/L (8-16); ASPARTATE AMINOTRANSFERASE 16 U/L (15-37); BILIRUBIN,TOTAL 0.3 mg/dL (0.1-1.0); CALCIUM, TOTAL 8.5 mg/dL (8.8-10.5); CARBON DIOXIDE 29 mmol/L (22-29); CHLORIDE 100 mmol/L (98-107); CREATININE 0.53 mg/dL (0.60-1.30); GLOMERULAR FILTR. RATE CALC > 60 mL/min (>60); POTASSIUM 4.1 mmol/L (3.5-5.1); SODIUM SERUM 136 mmol/L (136-145); TOTAL PROTEIN, SERUM 6.7 g/dL (6.4-8.2); UREA NITROGEN, BLOOD 14 mg/dL (7-18)
[2017-08-10 07:26] VITALS: BP 106/59
[2017-08-10] MEDS: PANTOPRAZOLE SODIUM 40 MG DR TABLET PO SCH (08:48)
[2017-08-10] MEDS: DOCUSATE SODIUM 100 MG CAPSULE PO SCH (08:48)
[2017-08-10] MEDS: HEPARIN SODIUM,PORCINE 5,000 UNITS/ML VIAL SQ SCH (08:48)
[2017-08-10 09:07] LABS: GLUCOSE COMMENT 1 Received Meds; GLUCOSE,POINT OF CARE 238 MG/DL (70-110)
[2017-08-10 11:28] VITALS: BP 123/65
[2017-08-10 11:53] LABS: GLUCOSE COMMENT 1 Received Meds; GLUCOSE,POINT OF CARE 378 MG/DL (70-110)
[2017-08-10] MEDS ORDERED: SULF1TAB42 PO (13:26)
== END 2017-08-10 13:45 | disposition home or self-care (01) | DRG 420 ==
LOC: EMS 08:53 → ICU 18:20 → 6N 08-02 22:45
PROVIDERS: ADMIT Internal Medicine; ATTEND Internal Medicine
PROC: 3E0234Z Introduction of Serum, Toxoid and Vaccine into Muscle, Percutaneous Approach (ICD-10-PCS; principal; 2017-08-01)
DX: E11.10 Type 2 diabetes mellitus with ketoacidosis without coma (principal); E43 Unspecified severe protein-calorie malnutrition; A41.9 Sepsis, unspecified organism; E87.1 Hypo-osmolality and hyponatremia; N39.0 Urinary tract infection, site not specified; B96.20 Unspecified Escherichia coli [E. coli] as the cause of diseases classified elsewhere; E11.649 Type 2 diabetes mellitus with hypoglycemia without coma; K82.4 Cholesterolosis of gallbladder; E87.6 Hypokalemia; D72.829 Elevated white blood cell count, unspecified; Z87.440 Personal history of urinary (tract) infections; Z90.710 Acquired absence of both cervix and uterus; Z68.1 Body mass index [BMI] 19.9 or less, adult; Z23 Encounter for immunization
CPT/HCPCS: 74177; 74183; 76700; 80074; 82805; 82962; 83036; 83735; 84100; 84132; 87040; 87081; 87086; 90471; A9585; J0696; J1644; J1815; J3475; J3480; J3490; J7030; J7050; J7060

== ENCOUNTER 2017-10-27 23:33 | Emergency (ER) | payer MEDICAID ==
[~2017-10-27] VITALS: Ht 162.6 cm; Wt 54.5 kg
[~2017-10-27 23:33] MED LIST changes: +CEFU250T58 PO; +INSU3INS3 SQ; -METF500T4 PO; +SULF1TAB42 PO
[2017-10-27 23:38] VITALS: BP 145/90
[2017-10-27] MEDS ORDERED: METF500T7 PO (23:39)
[2017-10-27 23:47] LABS: GLUCOSE,POINT OF CARE 400 MG/DL (70-110)
== END 2017-10-28 00:30 | disposition left against medical advice (07) ==
LOC: EMS 23:35
DX: R07.81 Pleurodynia (principal); E11.9 Type 2 diabetes mellitus without complications; Z53.21 Procedure and treatment not carried out due to patient leaving prior to being seen by health care provider
CPT/HCPCS: 82962

== ENCOUNTER 2017-11-05 08:09 | Inpatient (IN) | payer SELFPAY ==
[~2017-11-05] VITALS: Ht 162.6 cm; Wt 45.4 kg
[~2017-11-05 08:09] MED LIST changes: -CEFU250T58 PO; +METF500T7 PO; -SULF1TAB42 PO
[2017-11-05 08:22] LABS: GLUCOSE,POINT OF CARE 376 MG/DL (70-110)
[2017-11-05 08:54] LABS: BASOPHILS % (AUTO) 0.2 % (0.0-2.0); EOSINOPHILS % (AUTO) 0 % (1.0-6.0); HEMATOCRIT 46.4 % (36-46); HEMOGLOBIN 15.5 g/dL (12.0-16.0); LYMPHOCYTES # (AUTO) 0.9 K/uL (1.0-4.8); LYMPHOCYTES % (AUTO) 5.7 % (22.0-44.0); MEAN CORPUSCULAR HEMOGLOBIN 29.8 pg (26.0-34.0); MEAN CORPUSCULAR HGB CONC 33.5 G/dL (31.0-37.0); MEAN CORPUSCULAR VOLUME 89 fL (80-100); MONOCYTES # (AUTO) 0.8 K/uL (0.1-1.0); MONOCYTES % (AUTO) 4.9 % (2.0-9.0); NEUTROPHILS # (AUTO) 14.4 K/uL (1.8-7.7); PLATELET COUNT (AUTO) 218 K/uL (150-450); RED BLOOD CELL COUNT(AUTO) 5.21 MIL/uL (4.00-5.20); RED CELL DISTRIBUTION WIDTH 13.1 % (11.5-14.5)
[2017-11-05 08:57] LABS: NEUTROPHILS % (AUTO) 89.2 % (40.0-70.0)
[2017-11-05 09:20] LABS: ALBUMIN 3.4 g/dL (3.4-5.0); BILIRUBIN,TOTAL 0.5 mg/dL (0.1-1.0); CALCIUM, TOTAL 10.1 mg/dL (8.8-10.5); CREATININE 1.08 mg/dL (0.60-1.30); POTASSIUM 3.6 mmol/L (3.5-5.1); TOTAL PROTEIN, SERUM 9.4 g/dL (6.4-8.2)
[2017-11-05] MEDS ORDERED: SODIUM CHLORIDE 0.9% 1,000 ML IV ONE (09:45)
[2017-11-05] MEDS ORDERED: ONDANSETRON HCL 4 MG/2 ML VIAL IVP ONE (09:45)
[2017-11-05 10:42] LABS: GLUCOSE,POINT OF CARE 327 MG/DL (70-110)
[2017-11-05] MEDS ORDERED: INSULIN REGULAR, HUMAN 100 UNITS/ML IVP ONE (12:15)
[2017-11-05] MEDS ORDERED: CefTRIAXone SODIUM 1 GM in DEXTROSE 5%-WATER 10 ML IV ONE (12:30)
[2017-11-05] MEDS ORDERED: HYDROmorphone 2 MG/ML SYRINGE IVP ONE (12:45)
[2017-11-05 12:53] LABS: GLUCOSE,POINT OF CARE 315 MG/DL (70-110)
[2017-11-05] MEDS ORDERED: ACETAMINOPHEN 325 MG TABLET PO PRN (14:00)
[2017-11-05] MEDS ORDERED: ONDANSETRON HCL 4 MG/2 ML VIAL IVP PRN ×3 (14:00→21:00)
[2017-11-05] MEDS ORDERED: OxyCODONE HCL/ACETAMINOPHEN 5-325 MG TABLET PO PRN (14:00)
[2017-11-05] MEDS ORDERED: 0.9% SODIUM CHLORIDE 10 ML SYRINGE IVP PRN (14:00)
[2017-11-05] MEDS ORDERED: HYDROmorphone 2 MG/ML SYRINGE IVP PRN (14:00)
[2017-11-05 14:42] LABS: GLUCOSE,POINT OF CARE 288 MG/DL (70-110)
[2017-11-05 15:15] VITALS: BP 114/48
[2017-11-05] MEDS ORDERED: DEXTROSE 50%-WATER 25 GM/50 ML SYRINGE IVP PRN (18:30)
[2017-11-05] MEDS ORDERED: MORPHINE SULFATE 2 MG/ML SYRINGE IVP PRN ×3 (18:30→21:00)
[2017-11-05] MEDS: INSULIN ASPART 100 UNITS/ML SQ PRN ×2 (18:42→20:11)
[2017-11-05 18:58] VITALS: BP 119/68
[2017-11-05 19:17] LABS: GLUCOMETER DEV NAME(LOC) 6N 1E; GLUCOSE,POINT OF CARE 303 MG/DL (70-110)
[2017-11-05] MEDS: INSULIN DETEMIR 100 UNITS/ML SQ SCH (20:09)
[2017-11-05] MEDS ORDERED: MAGNESIUM HYDROXIDE SUSPENSION 30 ML UDCUP PO PRN (21:00)
[2017-11-05 21:23] LABS: GLUCOMETER DEV NAME(LOC) PV 4E; GLUCOSE,POINT OF CARE 289 MG/DL (70-110)
[2017-11-05] MEDS: SODIUM CHLORIDE 0.9% 1,000 ML IV SCH (22:37)
[2017-11-05] MEDS: PANTOPRAZOLE SODIUM 40 MG/VIAL IVP SCH (22:37)
[2017-11-05] MEDS: DOCUSATE SODIUM 100 MG CAPSULE PO SCH (22:38)
[2017-11-05 23:09] VITALS: BP 122/73
[2017-11-06] MEDS: ACETAMINOPHEN 325 MG TABLET PO PRN (02:17)
[2017-11-06 04:24] LABS: BILIRUBIN,URINE NEGATIVE (NEGATIVE); GLUCOSE, URINE (UA) >=1000 mg/dL (NEGATIVE); KETONES,URINE >=80 mg/dL (NEGATIVE); LEUKOCYTE ESTERASE ,URINE NEGATIVE (NEGATIVE); NITRATE,URINE NEGATIVE (NEGATIVE); OCCULT BLOOD,URINE SMALL (NEGATIVE); PROTEIN,URINE POS 1+ (NEGATIVE); UROBILINOGEN,URINE 0.2 mg/dL (<=1.0)
[2017-11-06 04:37] LABS: APPEARANCE,URINE HAZY (CLEAR); BACTERIA,URINE None Seen /HPF (None Seen); SQUAMOUS EPITHELIAL CELL,UR Moderate /LPF (None Seen); WBC,URINE None Seen /HPF (0-5)
[2017-11-06 04:42] VITALS: BP 106/64
[2017-11-06 05:58] LABS: GLUCOMETER DEV NAME(LOC) PV 4E; GLUCOSE,POINT OF CARE 234 MG/DL (70-110)
[2017-11-06] MEDS: INSULIN ASPART 100 UNITS/ML SQ PRN ×4 (06:36→20:39)
[2017-11-06 07:00] LABS: BASOPHILS # (AUTO) 0.04 K/uL (0.00-0.20); BASOPHILS % (AUTO) 0.3 % (0.0-2.0); EOSINOPHILS # (AUTO) 0.01 K/uL (0.00-0.70); EOSINOPHILS % (AUTO) 0.09 % (1.0-6.0); HEMATOCRIT 40.5 % (36-46); HEMOGLOBIN 13.6 g/dL (12.0-16.0); LYMPHOCYTES # (AUTO) 0.8 K/uL (1.0-4.8); LYMPHOCYTES % (AUTO) 5.9 % (22.0-44.0); MEAN CORPUSCULAR HEMOGLOBIN 29.4 pg (26.0-34.0); MEAN CORPUSCULAR HGB CONC 33.6 G/dL (31.0-37.0); MEAN CORPUSCULAR VOLUME 88 fL (80-100); MONOCYTES # (AUTO) 0.9 K/uL (0.1-1.0); MONOCYTES % (AUTO) 6.7 % (2.0-9.0); NEUTROPHILS # (AUTO) 11.6 K/uL (1.8-7.7); PLATELET COUNT (AUTO) 195 K/uL (150-450); RED BLOOD CELL COUNT(AUTO) 4.63 MIL/uL (4.00-5.20)
[2017-11-06 07:06] LABS: HEMOGLOBIN A1C 11.9 % (4.5-6.2)
[2017-11-06 07:31] LABS: ANION GAP 15 mmol/L (8-16); CALCIUM, TOTAL 8.8 mg/dL (8.8-10.5); CARBON DIOXIDE 17 mmol/L (22-29); CHLORIDE 95 mmol/L (98-107); CREATININE 0.85 mg/dL (0.60-1.30); GLOMERULAR FILTR. RATE CALC > 60 mL/min (>60); GLUCOSE,RANDOM 244 mg/dL (70-110); POTASSIUM 3.1 mmol/L (3.5-5.1); SODIUM SERUM 127 mmol/L (136-145); UREA NITROGEN, BLOOD 18 mg/dL (7-18)
[2017-11-06 07:57] VITALS: BP 102/70
[2017-11-06] MEDS: PANTOPRAZOLE SODIUM 40 MG/VIAL IVP SCH (09:25)
[2017-11-06] MEDS: DOCUSATE SODIUM 100 MG CAPSULE PO SCH ×2 (09:25→20:23)
[2017-11-06 11:27] VITALS: BP 128/64
[2017-11-06] MEDS: CefTRIAXone SODIUM 1 GM in DEXTROSE 5%-WATER 10 ML IV SCH (12:40)
[2017-11-06 14:28] LABS: GLUCOMETER DEV NAME(LOC) PV 4E; GLUCOSE,POINT OF CARE 269 MG/DL (70-110)
[2017-11-06 15:33] VITALS: BP 118/84
[2017-11-06] MEDS: POTASSIUM CHLORIDE 20 MEQ ER TABLET PO PRN (16:03)
[2017-11-06 20:04] VITALS: BP 115/69
[2017-11-06] MEDS: SODIUM CHLORIDE 0.9% 1,000 ML IV SCH (20:23)
[2017-11-06] MEDS: INSULIN DETEMIR 100 UNITS/ML SQ SCH (20:39)
[2017-11-06] MEDS: POTASSIUM CHL 10 MEQ/WATER 50 ML IV PRN (21:43)
[2017-11-06] MEDS ORDERED: SODIUM CHLORIDE 0.9% 250 ML IV ONE (22:10)
[2017-11-06 23:30] VITALS: BP 109/65
[2017-11-07] MEDS: POTASSIUM CHL 10 MEQ/WATER 50 ML IV PRN ×3 (00:38→04:14)
[2017-11-07 01:03] LABS: GLUCOMETER DEV NAME(LOC) PV 4E; GLUCOSE,POINT OF CARE 382 MG/DL (70-110)
[2017-11-07 01:03] LABS: GLUCOMETER DEV NAME(LOC) PV 4E; GLUCOSE,POINT OF CARE 393 MG/DL (70-110)
[2017-11-07] MEDS: SODIUM CHLORIDE 0.9% 1,000 ML IV SCH (02:23)
[2017-11-07 03:27] VITALS: BP 102/53
[2017-11-07] MEDS: INSULIN ASPART 100 UNITS/ML SQ PRN ×4 (05:36→20:28)
[2017-11-07 06:32] LABS: GLUCOMETER DEV NAME(LOC) PV 4E; GLUCOSE,POINT OF CARE 228 MG/DL (70-110)
[2017-11-07 08:34] VITALS: BP 109/63
[2017-11-07] MEDS: POTASSIUM CHLORIDE 20 MEQ ER TABLET PO PRN (09:30)
[2017-11-07] MEDS: PANTOPRAZOLE SODIUM 40 MG/VIAL IVP SCH (09:30)
[2017-11-07] MEDS: DOCUSATE SODIUM 100 MG CAPSULE PO SCH ×2 (09:30→21:00)
[2017-11-07 11:48] LABS: GLUCOMETER DEV NAME(LOC) PV 4E; GLUCOSE,POINT OF CARE 257 MG/DL (70-110)
[2017-11-07] MEDS: CefTRIAXone SODIUM 1 GM in DEXTROSE 5%-WATER 10 ML IV SCH (12:22)
[2017-11-07 12:37] VITALS: BP 116/63
[2017-11-07 16:16] VITALS: BP 115/70
[2017-11-07 17:37] LABS: GLUCOMETER DEV NAME(LOC) PV 4E; GLUCOSE,POINT OF CARE 342 MG/DL (70-110)
[2017-11-07 20:12] VITALS: BP 109/61
[2017-11-07] MEDS ORDERED: INSULIN DETEMIR 100 UNITS/ML SQ SCH (21:00)
[2017-11-07 22:17] LABS: GLUCOMETER DEV NAME(LOC) PV 4E; GLUCOSE,POINT OF CARE 345 MG/DL (70-110)
[2017-11-08 00:09] VITALS: BP 122/71
[2017-11-08] MEDS: ACETAMINOPHEN 325 MG TABLET PO PRN (00:52)
[2017-11-08 05:27] VITALS: BP 113/77
[2017-11-08 06:06] LABS: ANION GAP 5 mmol/L (8-16); CARBON DIOXIDE 30 mmol/L (22-29); CHLORIDE 101 mmol/L (98-107); CREATININE 0.48 mg/dL (0.60-1.30); GLUCOSE,RANDOM 192 mg/dL (70-110); POTASSIUM 3.1 mmol/L (3.5-5.1); SODIUM SERUM 136 mmol/L (136-145); UREA NITROGEN, BLOOD 9 mg/dL (7-18)
[2017-11-08 06:07] LABS: CALCIUM, TOTAL 8.7 mg/dL (8.8-10.5); GLOMERULAR FILTR. RATE CALC > 60 mL/min (>60)
[2017-11-08] MEDS: SODIUM CHLORIDE 0.9% 1,000 ML IV SCH (06:28)
[2017-11-08] MEDS: INSULIN ASPART 100 UNITS/ML SQ PRN ×2 (06:29→12:26)
[2017-11-08 06:43] LABS: GLUCOMETER DEV NAME(LOC) PV 4E; GLUCOSE,POINT OF CARE 214 MG/DL (70-110)
[2017-11-08 07:08] LABS: BASOPHILS # (AUTO) 0.03 K/uL (0.00-0.20); BASOPHILS % (AUTO) 0.4 % (0.0-2.0); EOSINOPHILS # (AUTO) 0.06 K/uL (0.00-0.70); EOSINOPHILS % (AUTO) 0.77 % (1.0-6.0); HEMATOCRIT 38.6 % (36-46); HEMOGLOBIN 13.2 g/dL (12.0-16.0); LYMPHOCYTES # (AUTO) 1.6 K/uL (1.0-4.8); LYMPHOCYTES % (AUTO) 19.6 % (22.0-44.0); MEAN CORPUSCULAR HEMOGLOBIN 29.6 pg (26.0-34.0); MEAN CORPUSCULAR HGB CONC 34.3 G/dL (31.0-37.0); MEAN CORPUSCULAR VOLUME 86 fL (80-100); MONOCYTES # (AUTO) 0.6 K/uL (0.1-1.0); MONOCYTES % (AUTO) 6.8 % (2.0-9.0); NEUTROPHILS # (AUTO) 5.8 K/uL (1.8-7.7); NEUTROPHILS % (AUTO) 72.5 % (40.0-70.0); PLATELET COUNT (AUTO) 258 K/uL (150-450); RED BLOOD CELL COUNT(AUTO) 4.48 MIL/uL (4.00-5.20); RED CELL DISTRIBUTION WIDTH 13.2 % (11.5-14.5)
[2017-11-08] MEDS: POTASSIUM CHLORIDE 20 MEQ ER TABLET PO PRN (07:55)
[2017-11-08 08:05] VITALS: BP 121/63
[2017-11-08] MEDS: PANTOPRAZOLE SODIUM 40 MG/VIAL IVP SCH (09:00)
[2017-11-08] MEDS: DOCUSATE SODIUM 100 MG CAPSULE PO SCH (09:00)
[2017-11-08 12:23] LABS: GLUCOMETER DEV NAME(LOC) PV 4E; GLUCOSE,POINT OF CARE 292 MG/DL (70-110)
[2017-11-08 12:53] VITALS: BP 150/84
[2017-11-08] MEDS ORDERED: METO5TAB95 PO (13:01)
== END 2017-11-08 16:00 | disposition home or self-care (01) | DRG 74 ==
LOC: EMS 08:11 → EEVIPCON 08:11 → 4E 13:49 → 6N 14:31 → 4E 18:45
PROVIDERS: ADMIT Internal Medicine; ATTEND Internal Medicine
DX: E11.43 Type 2 diabetes mellitus with diabetic autonomic (poly)neuropathy (principal); E11.65 Type 2 diabetes mellitus with hyperglycemia; E87.1 Hypo-osmolality and hyponatremia; K31.84 Gastroparesis; Z79.84 Long term (current) use of oral hypoglycemic drugs; Z79.4 Long term (current) use of insulin; Z90.710 Acquired absence of both cervix and uterus
CPT/HCPCS: 74176; 76770; 82962; 83036; 83605; 84132; 87040; 93005; 96365; 96375; 99285; C9113; J0696; J1170; J1815; J2270; J2405; J7030; J7050; J7060

== ENCOUNTER 2018-01-05 13:40 | Emergency (ER) | payer SELFPAY ==
[~2018-01-05] VITALS: Ht 162.6 cm; Wt 45.5 kg
[~2018-01-05 13:40] MED LIST changes: -INSU3INS3 SQ; +METO5TAB95 PO
[2018-01-05] MEDS ORDERED: FOLI0.4T4 PO (13:51)
[2018-01-05 13:57] LABS: GLUCOSE,POINT OF CARE 331 MG/DL (70-110)
[2018-01-05] MEDS ORDERED: ACETAMINOPHEN 500 MG TABLET PO ONE (14:15)
[2018-01-05] MEDS ORDERED: SODIUM CHLORIDE 0.9% 1,000 ML IV ONE ×2 (14:15→16:15)
[2018-01-05] MEDS ORDERED: ONDANSETRON HCL 4 MG/2 ML VIAL IVP ONE (14:15)
[2018-01-05 14:38] LABS: BASOPHILS % (AUTO) 0.6 % (0.0-2.0); EOSINOPHILS % (AUTO) 0.1 % (1.0-6.0); HEMATOCRIT 34.7 % (36-46); HEMOGLOBIN 11.9 g/dL (12.0-16.0); LYMPHOCYTES # (AUTO) 1.1 K/uL (1.0-4.8); LYMPHOCYTES % (AUTO) 7.7 % (22.0-44.0); MEAN CORPUSCULAR HEMOGLOBIN 28.3 pg (26.0-34.0); MEAN CORPUSCULAR HGB CONC 34.4 G/dL (31.0-37.0); MEAN CORPUSCULAR VOLUME 82 fL (80-100); MONOCYTES # (AUTO) 0.8 K/uL (0.1-1.0); MONOCYTES % (AUTO) 5.7 % (2.0-9.0); NEUTROPHILS # (AUTO) 12.5 K/uL (1.8-7.7); PLATELET COUNT (AUTO) 331 K/uL (150-450); RED BLOOD CELL COUNT(AUTO) 4.21 MIL/uL (4.00-5.20); RED CELL DISTRIBUTION WIDTH 13.4 % (11.5-14.5)
[2018-01-05 14:39] LABS: NEUTROPHILS % (AUTO) 85.9 % (40.0-70.0)
[2018-01-05 14:53] LABS: ANION GAP 13 mmol/L (8-16); CALCIUM, TOTAL 8.6 mg/dL (8.8-10.5); CARBON DIOXIDE 23 mmol/L (22-29); CHLORIDE 90 mmol/L (98-107); CREATININE 0.59 mg/dL (0.60-1.30); GLOMERULAR FILTR. RATE CALC > 60 mL/min (>60); GLUCOSE,RANDOM 327 mg/dL (70-110); POTASSIUM 3.5 mmol/L (3.5-5.1); SODIUM SERUM 126 mmol/L (136-145); UREA NITROGEN, BLOOD 12 mg/dL (7-18)
[2018-01-05 14:59] LABS: ALANINE AMINOTRANSFERASE 27 U/L (12-78); ALBUMIN 2.7 g/dL (3.4-5.0); ALKALINE PHOSPHATASE 145 U/L (46-116); ASPARTATE AMINOTRANSFERASE 24 U/L (15-37); BILIRUBIN,TOTAL 0.4 mg/dL (0.1-1.0); TOTAL PROTEIN, SERUM 7.7 g/dL (6.4-8.2)
[2018-01-05 15:15] LABS: APPEARANCE,URINE CLOUDY (CLEAR); BILIRUBIN,URINE NEGATIVE (NEGATIVE); GLUCOSE, URINE (UA) >=1000 mg/dL (NEGATIVE); KETONES,URINE 40 mg/dL (NEGATIVE); LEUKOCYTE ESTERASE ,URINE SMALL (NEGATIVE); NITRATE,URINE POSITIVE (NEGATIVE); OCCULT BLOOD,URINE TRACE (NEGATIVE); PROTEIN,URINE TRACE (NEGATIVE)
[2018-01-05 15:32] LABS: BACTERIA,URINE Many /HPF (None Seen); RBC,URINE 0-2 /HPF (0-2)
[2018-01-05 15:33] LABS: SQUAMOUS EPITHELIAL CELL,UR Moderate /LPF (None Seen); WBC,URINE 26-50 /HPF (0-5)
[2018-01-05] MEDS ORDERED: CefTRIAXone SODIUM 2 GM in DEXTROSE 5%-WATER 20 ML IV ONE (15:45)
[2018-01-05 17:17] VITALS: BP 106/64
== END 2018-01-05 18:04 | disposition home or self-care (01) ==
LOC: EMS 13:42 → EEVIPCON 13:42 → EMS 18:04
DX: N12 Tubulo-interstitial nephritis, not specified as acute or chronic (principal); R03.0 Elevated blood-pressure reading, without diagnosis of hypertension; E11.9 Type 2 diabetes mellitus without complications
CPT/HCPCS: 36415; 80053; 81001; 82962; 84703; 85025; 87077; 87086; 87186; 96361; 96365; 96366; 96375; 99285; J0696; J2405; J7030; J7060